=== PATIENT | female | born 1945 | race Two or more races ===

== ENCOUNTER 2020-09-12 09:28 | Emergency (ER) | payer OTHER ==
[~2020-09-12] VITALS: Ht 157.5 cm; Wt 59.4 kg
[2020-09-12] MEDS ORDERED: COZAAR50 MG (10:07)
[2020-09-12] MEDS ORDERED: [UNRECOGNIZED DRUG - OTHER] (10:08)
[2020-09-12] MEDS ORDERED: B COMPLEX1 EAC1 (10:08)
[2020-09-12] MEDS ORDERED: ATORVASTATIN CA20 MG (10:08)
== END 2020-09-12 14:08 | disposition home or self-care (01) ==
LOC: ER 09:28
DX: M79.662 Pain in left lower leg (principal); Z03.818 Encounter for observation for suspected exposure to other biological agents ruled out

== ENCOUNTER 2021-07-16 12:58 | Outpatient (CLI) | payer OTHER ==
[~2021-07-16 12:58] MED LIST: ATORVASTATIN CA20 MG; B COMPLEX1 EAC1; COZAAR50 MG; [UNRECOGNIZED DRUG - OTHER]
== END 2021-07-16 13:04 | disposition home or self-care (01) ==
LOC: NUCLEAR 12:58
PROVIDERS: ATTEND Specialist
DX: M81.0 Age-related osteoporosis without current pathological fracture (principal)

== ENCOUNTER 2022-08-09 12:34 | Outpatient (CLI) | payer OTHER | END 2022-08-09 12:36 | disposition home or self-care (01) | LOC: NUCLEAR 12:34 | PROVIDERS: ATTEND Family Medicine Adult Medicine | DX: M81.0 Age-related osteoporosis without current pathological fracture (principal) ==